=== PATIENT | male | born 1950 | race Caucasian/White ===

== ENCOUNTER 2023-01-22 10:42 | Inpatient (IN) | payer OTHER, MEDICARE ==
[~2023-01-22] VITALS: Ht 175.3 cm; Wt 102.0 kg
[~2023-01-22 10:42] MED LIST: ALBU90AE INH; AMLO5TAB4 PO; ASPI81TA53 PO; CHOL200012 PO; CLOP75TA34 PO; CYAN500T71 PO; DULO-31 PO; EZET10TA6 PO; FINA5TAB11 PO; FLO0.4C PO; GABA-530 PO; GABA300C PO; HYDR-3972 PO; KEN0.1O TP; LIDO700A32 TOP; LISI5TAB22 PO; METF-900 PO; METH-797 PO; METO-395 PO; NYST15CR36 TOP; PANT-47 PO; PSYL0.4C2 PO; ROSU40TA PO; ZOLP5TAB8 PO
[2023-01-22] MEDS ORDERED: aspirin 81mg tab.chew PO ONE (10:55)
--- NOTE | 2023-01-22 11:05 | NUR ---
PLACED PT ON MONITOR.
[2023-01-22 11:19] LABS: BASOPHILS # (AUTO) 0.1 X10'3 (0-0.2); BASOPHILS % (AUTO) 1.1 % (0-1); EOSINOPHILS # (AUTO) 0.2 X10'3 (0-0.9); EOSINOPHILS % (AUTO) 3.4 % (0-6); HEMATOCRIT 39.2 % (42.0-52.0); LYMPHOCYTES # (AUTO) 1.8 X10'3 (1.1-4.8); LYMPHOCYTES % (AUTO) 30.7 % (21-51); MEAN CORPUSCULAR HEMOGLOBIN 29.2 PG (27.0-31.0); MEAN CORPUSCULAR HGB CONC 33.2 g/dL (33.0-36.5); MEAN PLATELET VOLUME 6.7 FL (7.4-10.4); MONOCYTES # (AUTO) 0.5 X10'3 (0-0.9); MONOCYTES % (AUTO) 8.8 % (2-12); NEUTROPHILS # (AUTO) 3.3 X10'3 (1.8-7.7); PLATELET COUNT 462 X10'3 (140-440); RED BLOOD COUNT 4.46 X10'6 (4.70-6.10); WHITE BLOOD COUNT 5.8 X10'3 (4.5-11.0)
[2023-01-22 11:25] LABS: ALANINE AMINOTRANSFERASE 23 U/L (12-78); ALBUMIN 3.7 G/DL (3.4-5.0); ALBUMIN/GLOBULIN RATIO 1.2 (1.1-1.5); ALKALINE PHOSPHATASE 103 IU/L (46-116); ANION GAP 7 (8-16); ASPARTATE AMINO TRANSFERASE 11 U/L (10-37); BILIRUBIN,TOTAL 0.4 MG/DL (0.1-1.0); BLOOD UREA NITROGEN 19 MG/DL (7-18); BUN/CREATININE RATIO 16.5 (10.0-20.0); CHLORIDE 108 MMOL/L (99-107); CREATININE 1.15 MG/DL (0.60-1.10); GLUCOSE 99 MG/DL (70-104); POTASSIUM 4.1 MMOL/L (3.5-5.1); SODIUM 142 MMOL/L (135-145); TOTAL CARBON DIOXIDE 27.1 MMOL/L (24-32); TOTAL PROTEIN 6.9 G/DL (6.4-8.2); eGFR 63 ML/MIN
[2023-01-22] MEDS ORDERED: ondansetron/PF 4mg/2ml inj IV ONE (11:40)
[2023-01-22] MEDS ORDERED: nitroGLYCERIN 1gm ointment UD TP ONE (11:40)
[2023-01-22] MEDS ORDERED: morphine 4 MG/ML inj SYRINge IV ONE (11:40)
[2023-01-22] MEDS ORDERED: morphine 2 MG/ML inj. syringe IV PRN (14:50)
[2023-01-22] MEDS ORDERED: insulin Lispro (HumaLOG) vial - multi-dose SQ SCH (14:50)
[2023-01-22] MEDS ORDERED: MESSAGE TO PHARMACY PO ONE (14:50)
[2023-01-22] MEDS ORDERED: magnesium 2GM in 50ml NS 50 ML IV PRN (14:50)
[2023-01-22] MEDS ORDERED: magnesium Cl slow-release 64mg tablet PO PRN (14:50)
[2023-01-22] MEDS ORDERED: DEXTROSE 15 GM of carb/4 tabs (each vial/BOTTLE has 4 tablets) PO PRN ×2 (14:50)
[2023-01-22] MEDS ORDERED: HYDROcodone/acetaminophen 5mg/325mg tablet PO PRN (14:50)
[2023-01-22] MEDS ORDERED: potassium Cl 40MEQ/1/2NS 520ml 520 ML IV PRN (14:50)
[2023-01-22] MEDS ORDERED: ondansetron/PF 4mg/2ml inj IV PRN (14:50)
[2023-01-22] MEDS ORDERED: acetaminophen 325mg tablet PO PRN ×2 (14:50)
[2023-01-22] MEDS ORDERED: glucagon, human recombinant 1mg kit SUBCUT PRN (14:50)
[2023-01-22] MEDS ORDERED: magnesium hydroxide 30ml (MOM) UD suspension PO PRN (14:50)
[2023-01-22] MEDS ORDERED: dextrose 50%-water 50ml dispensing syringe IV PRN ×2 (14:50)
[2023-01-22] MEDS ORDERED: mag hydrox/Alum hydrox/simeth 30ml oral suspension PO PRN (14:50)
[2023-01-22] MEDS ORDERED: potassium Cl 20 mEq SR tablet PO PRN ×2 (14:50)
[2023-01-22] MEDS ORDERED: magnesium 4gm in 100ml NS 100 ML IV PRN (14:50)
[2023-01-22] MEDS ORDERED: NITR0.4T51 SL (16:55)
[2023-01-22] MEDS ORDERED: PRAV20TA4 PO (16:56)
[2023-01-22] MEDS: morphine 2 MG/ML inj. syringe IV PRN ×2 (17:27→22:32)
[2023-01-22] MEDS ORDERED: pantoprazole 40mg Tablet.DR PO PRN (17:40)
[2023-01-22] MEDS ORDERED: zolpidem 5mg tablet PO PRN (17:40)
[2023-01-22] MEDS ORDERED: cyclobenzaprine 10mg tablet PO PRN (17:40)
[2023-01-22] MEDS ORDERED: nitroGLYCERIN 0.4mg SUBLingual tab SL PRN (17:40)
[2023-01-22] MEDS: K and/or MAG REPLACEMENT MC SCH (20:00)
[2023-01-22] MEDS: tamsulosin 0.4mg capsule PO SCH (20:28)
[2023-01-22] MEDS: metoprolol succinate 25mg (24-HOUR) SR. Tablet PO SCH (20:28)
[2023-01-22] MEDS: atorvastatin 10mg tablet PO SCH (20:29)
[2023-01-22 20:30] VITALS: BP 117/70
[2023-01-22] MEDS: insulin glargine (Lantus) pen - multi-dose SQ SCH (21:00)
[2023-01-22] MEDS: HYDROcodone/acetaminophen 10/325mg tab PO PRN (21:11)
[2023-01-22] MEDS: normal saline 1000ml 1,000 ML IV SCH (21:34)
[2023-01-23] VITALS (13 sets, daily range): BP systolic 112–152; BP diastolic 52–94
--- NOTE | 2023-01-23 05:49 | NUR ---
AGREE WITH NEON GLASS BLOWER ASSESSMENT
[2023-01-23 07:20] LABS: BASOPHILS # (AUTO) 0.1 X10'3 (0-0.2); BASOPHILS % (AUTO) 1.2 % (0-1); EOSINOPHILS # (AUTO) 0.3 X10'3 (0-0.9); EOSINOPHILS % (AUTO) 3.6 % (0-6); HEMATOCRIT 35.7 % (42.0-52.0); HEMOGLOBIN 11.6 g/dl (14.0-17.9); LYMPHOCYTES # (AUTO) 1.3 X10'3 (1.1-4.8); LYMPHOCYTES % (AUTO) 18.7 % (21-51); MEAN CORPUSCULAR HEMOGLOBIN 28.3 PG (27.0-31.0); MEAN CORPUSCULAR HGB CONC 32.5 g/dL (33.0-36.5); MEAN CORPUSCULAR VOLUME 87.2 FL (78-98); MEAN PLATELET VOLUME 6.7 FL (7.4-10.4); MONOCYTES # (AUTO) 0.6 X10'3 (0-0.9); MONOCYTES % (AUTO) 8.7 % (2-12); NEUTROPHILS # (AUTO) 4.8 X10'3 (1.8-7.7); NEUTROPHILS % (AUTO) 67.8 % (42-75); PLATELET COUNT 385 X10'3 (140-440); RED CELL DISTRIBUTION WIDTH 14.5 % (11.5-14.5); WHITE BLOOD COUNT 7.1 X10'3 (4.5-11.0)
[2023-01-23 07:27] LABS: ALBUMIN 3.2 G/DL (3.4-5.0); ANION GAP 9 (8-16); BLOOD UREA NITROGEN 18 MG/DL (7-18); BUN/CREATININE RATIO 18.8 (10.0-20.0); CALCIUM 8.2 MG/DL (8.5-10.1); CHLORIDE 108 MMOL/L (99-107); CREATININE 0.96 MG/DL (0.60-1.10); GLUCOSE 89 MG/DL (70-104); MAGNESIUM 1.8 MG/DL (1.5-2.4); POTASSIUM 4.1 MMOL/L (3.5-5.1); SODIUM 142 MMOL/L (135-145); TOTAL CARBON DIOXIDE 25.3 MMOL/L (24-32); eGFR 77 ML/MIN
[2023-01-23] MEDS: K and/or MAG REPLACEMENT MC SCH ×2 (08:00→20:00)
[2023-01-23] MEDS: clopidogrel 75mg tablet PO SCH (08:11)
[2023-01-23] MEDS: aspirin 81mg tab.chew PO SCH (08:11)
[2023-01-23] MEDS: amLODIPine 5mg tablet PO SCH (08:12)
[2023-01-23] MEDS: duloxetine 30mg CAPSULE.DR PO SCH (08:12)
[2023-01-23] MEDS: lisinopril 5mg tablet PO SCH (08:13)
[2023-01-23] MEDS: finasteride 5mg tablet PO SCH (08:57)
[2023-01-23 09:46] LABS: D-DIMER < 0.19 MG/L FEU (0-0.50)
[2023-01-23] MEDS ORDERED: nitroGLYCERIN 0.4mg SUBLingual tab SL PRN (10:20)
[2023-01-23] MEDS ORDERED: aminophylline 250mg/10ml inj. IV PRN (10:20)
[2023-01-23] MEDS ORDERED: regadenoson 0.4mg/5ml syringe IV PRN (10:20)
[2023-01-23] MEDS ORDERED: metoprolol tartrate 1mg/ml inj IV PRN (10:20)
[2023-01-23] MEDS: isosorbide mononitrate 30mg tab.SR.24H PO SCH (16:15)
--- NOTE | 2023-01-23 16:40 | NUR ---
Message: RY ON [email or web address], UVALDO YUAN REPORT IS AVAILABLE FOR [id number], THANK YOU.
--- NOTE | 2023-01-23 17:40 | NUR ---
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
--- NOTE | 2023-01-23 18:16 | NUR ---
Problems reprioritized. Patient report given, questions answered & plan of care reviewed with Verna SOLOMON.
--- NOTE | 2023-01-23 18:17 | NUR ---
Patient in room PCU 3024. I have received report from WES Thomas and had the opportunity to ask questions and assume patient care. Patient sitting up in bed,just finished dinner and in no obvious distress. Still complaining of chest pain, aware. Per his request I will bring him a [place] for pain.
[2023-01-23] MEDS: HYDROcodone/acetaminophen 10/325mg tab PO PRN (18:38)
[2023-01-23] MEDS: normal saline 1000ml 1,000 ML IV SCH ×2 (18:39→20:40)
[2023-01-23] MEDS: tamsulosin 0.4mg capsule PO SCH (20:49)
[2023-01-23] MEDS: atorvastatin 10mg tablet PO SCH (20:49)
[2023-01-23] MEDS: metoprolol succinate 25mg (24-HOUR) SR. Tablet PO SCH (20:49)
[2023-01-23] MEDS: insulin glargine (Lantus) pen - multi-dose SQ SCH (21:00)
[2023-01-24 06:00] VITALS: BP 109/61
--- NOTE | 2023-01-24 06:31 | NUR ---
Problems reprioritized. Patient report given, questions answered & plan of care reviewed with NEHA Thomas.
--- NOTE | 2023-01-24 06:31 | NUR ---
Patient in room PCU 3024. I have received report from Anisha SOLOMON and had the opportunity to ask questions and assume patient care.
[2023-01-24 07:32] LABS: BASOPHILS % (AUTO) 0.8 % (0-1); EOSINOPHILS # (AUTO) 0.1 X10'3 (0-0.9); EOSINOPHILS % (AUTO) 1.9 % (0-6); HEMATOCRIT 36.6 % (42.0-52.0); HEMOGLOBIN 11.8 g/dl (14.0-17.9); LYMPHOCYTES # (AUTO) 1.3 X10'3 (1.1-4.8); MEAN CORPUSCULAR HEMOGLOBIN 28.9 PG (27.0-31.0); MEAN CORPUSCULAR HGB CONC 32.3 g/dL (33.0-36.5); MEAN CORPUSCULAR VOLUME 89.4 FL (78-98); MEAN PLATELET VOLUME 6.9 FL (7.4-10.4); MONOCYTES # (AUTO) 0.6 X10'3 (0-0.9); MONOCYTES % (AUTO) 9.6 % (2-12); NEUTROPHILS # (AUTO) 4.2 X10'3 (1.8-7.7); NEUTROPHILS % (AUTO) 66.7 % (42-75); PLATELET COUNT 394 X10'3 (140-440); RED BLOOD COUNT 4.09 X10'6 (4.70-6.10); RED CELL DISTRIBUTION WIDTH 14.6 % (11.5-14.5); WHITE BLOOD COUNT 6.3 X10'3 (4.5-11.0)
[2023-01-24 07:56] LABS: ALBUMIN 3.2 G/DL (3.4-5.0); ANION GAP 10 (8-16); BLOOD UREA NITROGEN 21 MG/DL (7-18); BUN/CREATININE RATIO 21.6 (10.0-20.0); CALCIUM 8.6 MG/DL (8.5-10.1); CHLORIDE 106 MMOL/L (99-107); CREATININE 0.97 MG/DL (0.60-1.10); GLUCOSE 100 MG/DL (70-104); MAGNESIUM 2.2 MG/DL (1.5-2.4); POTASSIUM 4.1 MMOL/L (3.5-5.1); SODIUM 141 MMOL/L (135-145); TOTAL CARBON DIOXIDE 25.5 MMOL/L (24-32); eGFR 77 ML/MIN
[2023-01-24] MEDS: K and/or MAG REPLACEMENT MC SCH (08:00)
[2023-01-24] MEDS: aspirin 81mg tab.chew PO SCH (08:51)
[2023-01-24] MEDS: isosorbide mononitrate 30mg tab.SR.24H PO SCH (08:51)
[2023-01-24] MEDS: duloxetine 30mg CAPSULE.DR PO SCH (08:51)
[2023-01-24] MEDS: amLODIPine 5mg tablet PO SCH (08:52)
[2023-01-24 08:53] VITALS: BP_SYST 109
[2023-01-24] MEDS: lisinopril 5mg tablet PO SCH (08:53)
[2023-01-24] MEDS: clopidogrel 75mg tablet PO SCH (08:53)
[2023-01-24] MEDS: finasteride 5mg tablet PO SCH (08:56)
[2023-01-24] MEDS ORDERED: ASPI81TA53 PO (09:37)
[2023-01-24] MEDS: normal saline 1000ml 1,000 ML IV SCH (10:00)
== END 2023-01-24 10:40 | disposition home or self-care (01) | DRG 392 ==
LOC: ER 10:42 → ED HOLD 14:59 → PCU 3S 19:00
PROVIDERS: ADMIT Family Medicine; ATTEND Family Medicine
PROC: 4A02XM4 Measurement of Cardiac Total Activity, External Approach (ICD-10-PCS; principal; 2023-01-23)
PROC: 3E073KZ Introduction of Other Diagnostic Substance into Coronary Artery, Percutaneous Approach (ICD-10-PCS; 2023-01-23)
DX: K21.9 Gastro-esophageal reflux disease without esophagitis (principal); E11.9 Type 2 diabetes mellitus without complications; I10 Essential (primary) hypertension; E78.00 Pure hypercholesterolemia, unspecified; J45.909 Unspecified asthma, uncomplicated; R07.89 Other chest pain; I25.10 Atherosclerotic heart disease of native coronary artery without angina pectoris; Z79.02 Long term (current) use of antithrombotics/antiplatelets; Z79.82 Long term (current) use of aspirin; Z79.899 Other long term (current) drug therapy; Z80.8 Family history of malignant neoplasm of other organs or systems; I25.2 Old myocardial infarction; Z83.3 Family history of diabetes mellitus; Z87.891 Personal history of nicotine dependence; Z95.5 Presence of coronary angioplasty implant and graft; Z90.49 Acquired absence of other specified parts of digestive tract; Z82.49 Family history of ischemic heart disease and other diseases of the circulatory system
CPT/HCPCS: 36415; 71045; 78452; 80048; 80053; 82948; 83735; 83880; 84484; 85025; 85379; 87081; 93017; 99285; A9500; G0378; J1815; J2270; J2785; J7030